=== PATIENT | male | born 1990 | race Caucasian/White ===

== ENCOUNTER 2017-12-14 15:18 | Emergency (ER) | payer OTHER ==
[~2017-12-14] VITALS: Ht 167.6 cm; Wt 113.4 kg
[2017-12-14] MEDS ORDERED: AVAPRO75 MG PO (15:36)
== END 2017-12-14 17:22 | disposition home or self-care (01) ==
LOC: ER 15:18
DX: M54.2 Cervicalgia (principal); M62.830 Muscle spasm of back